=== PATIENT | male | born 1955 | race Caucasian/White ===

== ENCOUNTER → 2016-09-11 | Outpatient (CLI) | payer BC ==
--- NOTE | ~2016-09-11 | 2DMMODE ---
[facility] [place] [address] 2 D/M-MODE ECHOCARDIOGRAM Name: CHYNA JOEL Room #: REG CL OlyOly#: [id number] Admission: 09/11/16 Attend Phys: Deejay Beltran Discharge: Date of : 53 Date of Service: 09/11/16 1519 Report #: [id number] THIS REPORT FOR: //name// Transthoracic Echocardiography Ordering physician: Cristiana Harris Referring physician: Dante King Kerry B. Administrative Court Justice: Ayaka Asencio Indications/History: Vasovagal syncope. HTN, HLP BP: 120 / HR: 82bpm Height: 72in Weight: 234.5lb 84 Study data: M-mode, complete 2D, complete spectral Doppler, and color Doppler. Location: Echo laboratory. Routine. Image quality was adequate. 2D measurements Normal Normal LVID ED 50.3mm 36-57 IVS ED 11.5mm 6-11 LVID ES 32mm 23-40 LVPW ED 11.2mm 6-11 LA volume 28ml/m2 16-28 AoRoot diam 37.9mm 21-37 index ED LVOT diameter 23mm 18-23 Findings: Left ventricle: The cavity size was normal. Wall thickness was normal. Systolic function was normal. The estimated ejection fraction was in the range of 55% to 60%. Wall motion was normal. Right ventricle: The cavity size was normal. Systolic function was normal. Right atrium: The atrium was normal in size. Left atrium: The atrium was normal in size. Volume index: 28ml/m2 (S). Aortic valve: Mildly calcified leaflets. Doppler: There was no stenosis. Moderate regurgitation. Peak velocity: 157.2cm/s (S). [facility] [place] [address] 2 D/M-MODE ECHOCARDIOGRAM Name: CHYNA JOEL Room #: REG WILLAM Andrew#: [id number] Admission: 09/11/16 Attend Phys: Deejay Beltran Discharge: Date of : 53 Date of Service: 09/11/16 1519 Report #: [id number] Mitral valve: Structurally normal valve. Doppler: There was no evidence for stenosis. Trivial regurgitation. Peak E-wave velocity: 66.5cm/s. Peak A-wave velocity: 76.2cm/s. Tricuspid valve: Structurally normal valve. Doppler: There was no evidence for stenosis. Trivial regurgitation. Regurgitant peak velocity: 236cm/s. Peak RV-RA gradient: 22mm Hg (S). Pulmonic valve: Structurally normal valve. Doppler: There was no evidence for stenosis. Mild regurgitation. Pericardium: There was no pericardial effusion. Aorta: Aortic root: The aortic root wasborderline dilated. Pulmonary artery: Systolic pressure was estimated to be 27mm Hg. Diastolic function: Doppler parameters are consistent with abnormal left ventricular relaxation (grade 1 diastolic dysfunction). Systemic veins: Inferior vena cava: The vessel was normal in size; the respirophasic diameter changes were in the normal range (= 50%). Conclusions 1. Left ventricle: The cavity size was normal. Wall thickness was normal. Systolic function was normal. The estimated ejection fraction was in the range of 55% to 60%. 2. Aortic valve: Mildly calcified leaflets. Moderate regurgitation. 3. Mitral valve: Structurally normal valve. Trivial regurgitation. 4. Pulmonic valve: Mild regurgitation. 5. Tricuspid valve: Trivial regurgitation. 6. Pulmonary arteries: Systolic pressure was estimated to be 27mm Hg. <ELECTRONICALLY SIGNED> By: Jian Chauhan MD 09/11/16 1625 1519 1625 Jian Chauhan MD /carla
== END ==
LOC: CV 09:42
DX: R55 Syncope and collapse (principal); I10 Essential (primary) hypertension; E78.5 Hyperlipidemia, unspecified

== ENCOUNTER → 2018-02-23 | Outpatient (CLI) | payer BC | LOC: PUL 09:57 | DX: J30.9 Allergic rhinitis, unspecified (principal) ==

== ENCOUNTER → 2020-03-21 | Outpatient (CLI) | payer OTHER | LOC: CAT 14:25 | PROVIDERS: ATTEND Internal Medicine Cardiovascular Disease | DX: Z13.6 Encounter for screening for cardiovascular disorders (principal); I25.10 Atherosclerotic heart disease of native coronary artery without angina pectoris; E78.00 Pure hypercholesterolemia, unspecified ==

== ENCOUNTER → 2020-05-31 | Outpatient (CLI) | payer OTHER, MEDICARE | LOC: SJCVCIMAG 08:40 | PROVIDERS: ATTEND Internal Medicine Cardiovascular Disease | DX: I35.1 Nonrheumatic aortic (valve) insufficiency (principal); I10 Essential (primary) hypertension; Z87.891 Personal history of nicotine dependence ==

== ENCOUNTER → 2021-05-15 | Outpatient (CLI) | payer OTHER, MEDICARE | LOC: SJCVC 10:49 | PROVIDERS: ATTEND Internal Medicine Cardiovascular Disease | DX: I35.1 Nonrheumatic aortic (valve) insufficiency (principal); I10 Essential (primary) hypertension; E78.00 Pure hypercholesterolemia, unspecified; Z87.891 Personal history of nicotine dependence; Z72.89 Other problems related to lifestyle; Z79.899 Other long term (current) drug therapy ==